=== PATIENT | female | born 1985 | race Asian ===

== ENCOUNTER 2019-01-15 16:25 | Inpatient (IN) | payer BC ==
[2019-01-15] MEDS ORDERED: LR 1,000 ML IV PRN (16:37)
[2019-01-15] MEDS ORDERED: MISOPROSTOL 200 MCG TAB PO PRN (16:37)
[2019-01-15] MEDS ORDERED: LIDOCAINE 1% 300 MG/30 ML SDV SC PRN (16:37)
[2019-01-15] MEDS ORDERED: IBUPROFEN 600 MG TAB PO PRN (16:37)
[2019-01-15] MEDS ORDERED: OXYTOCIN/RINGERS LACTATE 1,000 ML IV PRN (16:37)
[2019-01-15] MEDS ORDERED: TERBUTALINE SULFATE 1 MG/ML VIAL IV PRN (16:37)
[2019-01-15] MEDS ORDERED: OLIVE OIL 118 ML BTL MISC PRN (16:37)
[2019-01-15] MEDS ORDERED: AMMONIA AROMATIC 1 EACH AMP IH PRN (16:37)
[2019-01-15] MEDS ORDERED: EPSOM SALT 454 GM TP PRN (16:37)
[2019-01-15] MEDS ORDERED: LIDOCAINE 1% 300 MG/30 ML SDV ONE (17:32)
[2019-01-15] MEDS ORDERED: AMMONIA AROMATIC 1 EACH AMP IH ONE (17:33)
[2019-01-15] MEDS ORDERED: OXYTOCIN 10 UNIT/ML VIAL ONE (17:33)
[2019-01-15] MEDS ORDERED: MISOPROSTOL 200 MCG TAB ONE (17:33)
[2019-01-15] MEDS ORDERED: OLIVE OIL 118 ML BTL MISC ONE (17:33)
[2019-01-15] MEDS ORDERED: TERBUTALINE SULFATE 1 MG/ML VIAL ONE (17:33)
[2019-01-15 17:39] LABS: PLATELET COUNT 313 10^3/uL (150-400)
--- NOTE | 2019-01-15 17:51 | GHP ---
[f rep st] HISTORY AND PHYSICAL DATE OF ADMISSION: 01/15/2019 ADMITTING DIAGNOSIS: 1. Intrauterine at 40 weeks 4 days. 2. Nonreassuring testing. HISTORY OF PRESENT ILLNESS: Patient is a 33-year-old female from [facility], 1, para 0, at 40 weeks 4 days by LMP 04/06/2018, and consistent with ultrasound at 10 weeks. The patient presented to the office today, and saw my partner, Dr. Annmarie Link. Patient was complaining of lower abdominal pain, but does not stay very well hydrated. Good movement noted. Patient denies any vaginal bleeding or LOF. On exam, she was found to be 1 cm, 50%, -3 station and per it was difficult and very painful for his . NST was done that revealed 1 late deceleration, 2 accels, and multiple variable decelerations. Bedside ultrasound was done and revealed MVP of 3.8. It was discussed with the patient and her , without an layout inspector (they declined), that with non-reassuring testing and being past her due date, it was recommended she get delivered at this time. Patient was sent to Labor and Delivery for an induction of labor. At this time, she is uncomfortable with her contractions and breathing through them, pain 5/10. Denies any LOF of VB. Good FM noted. Patient has good care at [facility], and presented in her first trimester at 10 weeks. has been mostly uncomplicated. Patient has history of hypothyroidism and stable on levothyroxine 112 mcg. Patient has a history of asymptomatic gallstones, as well as asymptomatic asthma and has had no issues during the . She has not used an inhaler since she left [facility]. The patient was on progesterone in her first-trimester for low progesterone. The patient did have an abnormal Pap in the , and had a colposcopy that was benign. The patient developed anemia of , and is on iron supplement. She received Tdap and GBS culture is negative. PAST OB HISTORY: This is the patient's first . GYNECOLOGIC HISTORY: Age of menarche 12. Cycles every 28 to 29 days for 4 days. Patient denies history of abnormal Pap smears or any exposure to STDs. CURRENT MEDICATIONS: 1. Include vitamins. 2. Levothyroxine 112 mcg. 3. Iron supplement. ALLERGIES: No known drug allergies. PAST MEDICAL HISTORY: 1. Gallstones. 2. Asthma. PAST SURGICAL HISTORY: None. FAMILY HISTORY: Mother with hypertension. SOCIAL HISTORY: The patient is and lives with her . She is in [place]. Denies any alcohol, tobacco, or illicit drug use currently. REVIEW OF SYSTEMS: A 10-point review of systems is negative. Pertinent positives noted in HPI. LABS: First trimester H and H, 13.6 and 39.8, platelets 431. Blood type A positive, antibody negative. RPR nonreactive. Rubella immune. Hepatitis B surface antigen negative. HIV negative. Trio screen negative. Standard panel negative 06/19/2018. TSH in the late second trimester was elevated at 3.09, so Levo was increased to 112 mcg and then followup was 2.91. UA, urine culture, and UDS negative. Pap smear abnormal, LSIL. Gonorrhea, chlamydia cultures negative. Innatal screen negative. Single AFP negative. Third trimester H and H,11.2 and 33. 1 hour Glucola 117. GBS culture is negative. Varicella immune. PHYSICAL EXAMINATION: VITAL SIGNS: On admission, vital signs are stable. Patient is afebrile at 37.4, heart rate 84, respirations 28, and blood pressure 115/72. GENERAL: Patient is a well-nourished, well-developed female. Alert, and oriented x3. No apparent distress. SKIN: Warm, dry, and without rash. NEURO: Grossly intact. CARDIOVASCULAR: Regular rate and rhythm. LUNGS: Clear to auscultation bilaterally. ABDOMEN: Gravid, soft, nontender. PELVIC : In the office, she was 1 cm dilated, 50% effaced, -3 station. EXTREMITIES: Normal to inspection without calf tenderness or edema. Bedside ultrasound confirms cephalic presentation. heart tones: Category II strip with baseline 140s, positive accels, mild intermittent variable decels, and moderate variability; overall it is a reassuring strip. On toco, she is beti every 5 min. ASSESSMENT/PLAN: Patient is a 33-year-old 1, para 0, at 40 weeks 4 days , for induction of labor secondary to non-reassuring testing. 1. Admit to Labor and Delivery for induction to labor. 2. Unable to place Cervidil secondary to frequent contractions on toco. 3. Pt declined exam here on L&D, will augment with Pitocin. 4. GBS culture is negative. No antibiotics are needed. 5. heart tones are overall reassuring, will continue to monitor the strip closely. 6. Patient desires an epidural. /[id number]/MODL MTDD
[2019-01-15] MEDS ORDERED: LR 500 ML IV PRN (18:43)
[2019-01-15] MEDS ORDERED: OXYTOCIN/RINGERS LACTATE 500 ML IV SCH (19:00)
--- NOTE | 2019-01-16 06:13 | OBPROG ---
Labor Progress Note Assessment/Plan: Assessment: 33 y/o @ 40 5/7 weeks for IOL secondary to nonreassuring testing Plan: Pitocin currently at 10 mu/min Per RNs exam @0500, SVE: 2/60/-1, but not as posterior as previous exam FHTs - Cat II strip with intermittent, mild variable decels but overall reassuring Pt signed out to oncoming physician, Dr. Joyner who will take over care of the patient 01/16/19 06:08 Subjective/Intrapartum Course: 01/16/19 06:13 Pt is feeling her ctx's, but she able to sleep through them Objective: 01/15/19 17:00 Patient ABO/Rh A POSITIVE 01/15/19 17:00 - SVE Dilation (cm): 2 Effacement (%): 50 (60) Station: -1 - Contraction Pattern Assessment Current Contraction Pattern: Regular (q1-3 min) - FHR Assessment Billingsley FHR (bpm): 140 FHR Pattern Variability: Moderate FHR Category: 2 (mild, intermittent variable decels) - AP Antepartum Course: 01/16/19 06:15 Pt was on progesterone in first trimester secondary to low P4; hypothyroidism stable on Levo 112 mcg; anemia on iron; asymptomatic gallstones and asthma Oxytocin Orders Assessment - Pre-Induction/Augmentation Assessment Gestational Age: 40 week(s) and 4 day(s) ICD10 Worksheet Patient Problems: Problems Problem Status Onset Encounter for induction of labor Acute heart rate non-reassuring affecting management of mother Acute - ICD10 Problem Qualifiers (1) Encounter for induction of labor (2) heart rate non-reassuring affecting management of mother
--- NOTE | 2019-01-16 08:02 | OBPROG ---
Labor Progress Note Assessment/Plan: I assumed care from Dr. Cohen at 0700 Assessment:33 G1 at 40w5d, undergoing IOL for non-reassuring monitoring in office yesterday. Pitocin overnight but no progress. Cervix not ripened. Plan: Add cervical ripening to pitocin induction. Procedure: Transcervical Cook balloon catheter placed digitally with sterile gloves. 60ml saline in uterine balloon, 20ml saline in vaginal balloon. Pt uncomfortable but tolerated procedure well Marcia Joyner MD, FACOG 01/16/19 08:48 Subjective/Intrapartum Course: 01/16/19 06:13 Pt is feeling her ctx's, but she able to sleep through them 01/16/19 09:17 Pt is still only feeling mild contractions, no pain. NO LOF. No ssx preeclampsia. 01/16/19 09:17 Objective: 01/15/19 17:00 Patient ABO/Rh A POSITIVE 01/15/19 17:00 36.7 74 18 119/75 gen - pleasant, NAD abd - gravid, soft, NT ext - 1+ pitting edema BLE, 2+ DTRS, no clonus SVE 2/60/-1 - SVE Dilation (cm): 2 Effacement (%): 50 Station: -1 Membranes: Intact - Contraction Pattern Assessment Current Contraction Pattern: Regular (q1-3 min) - FHR Assessment Billingsley FHR (bpm): 130 FHR Pattern Variability: Moderate FHR Category: 1 - Procedures Non-surgical Procedures: Other (Specify) (transcervical balloon catheter placed 60ml u, 20 ml V) - AP Antepartum Course: 01/16/19 06:15 Pt was on progesterone in first trimester secondary to low P4; hypothyroidism stable on Levo 112 mcg; anemia on iron; asymptomatic gallstones and asthma Oxytocin Orders Assessment - Pre-Induction/Augmentation Assessment Gestational Age: 40 week(s) and 4 day(s) ICD10 Worksheet Patient Problems: Problems Problem Status Onset Encounter for induction of labor Acute heart rate non-reassuring affecting management of mother Acute
[2019-01-16] MEDS ORDERED: PHENYLEPHRINE HCL 100 MCG/ML SYR ONE (09:37)
[2019-01-16] MEDS ORDERED: BUPIVACAINE 0.25% 10 ML SDV ONE (09:37)
[2019-01-16] MEDS ORDERED: fentaNYL 2MCG/ML/BUP 0.1% RTU 100 ML BAG EP ONE (09:37)
[2019-01-16] MEDS ORDERED: METOCLOPRAMIDE 10 MG/2 ML VIAL IVP PRN (10:03)
[2019-01-16] MEDS ORDERED: ONDANSETRON 4 MG/2 ML VIAL IVP PRN (10:03)
[2019-01-16] MEDS ORDERED: PHENYLEPHRINE HCL 100 MCG/ML SYR IVP PRN (10:03)
[2019-01-16] MEDS ORDERED: NALOXONE HCL 0.4 MG/ML INJ IVP PRN (10:03)
--- NOTE | 2019-01-16 10:03 | POSTANESTH ---
Post Anesthetic Evaluation Cardiovascular Status: Normal, Stable Respiratory Status: Normal, Stable Level of Consciousness/Mental Status: Can Participate in Eval Pain Control: Adequate, Prn Tx Ordered Nausea/Vomiting Control: Adequate, Prn Tx Ordered Complications Possibly Related to Anesthesia: None Noted
--- NOTE | 2019-01-16 10:03 | PREANESOB ---
Obstetric Pre-Anesthesia Info - General Info Proposed Procedure: JAQUELIN : 1 Para: 0 EVAN: 01/11/19 Gestational Age: 40 week(s) and 4 day(s) - Info Status: Full Term Monitors: External FHR Pattern: Reassuring - Labor Status Cervical Dilation per last OB SVE: 2 Station per last OB SVE: -1 Pitocin: In Use Indications for Labor Analgesia: Pain Control Labor Epidural: Proposed Anesthesia Allergies/Adverse Reactions: Allergy/AdvReac Type Severity Reaction Status Date / Time No Known Allergies Allergy Unverified 01/15/19 17:43 Home Medications: Medication Instructions Recorded Iron 65 mg PO DAILY 01/15/19 Levothyroxine [Synthroid 112 mcg 112 mcg PO DAILY06 01/15/19 (*)] Visit Medications: Generic Name Dose Route Start Last Admin Trade Name Freq PRN Reason Stop Dose Admin Ammonia (Aromatic Spirit) 1 each 01/15/19 16:37 Ammonia Aromatic IH 01/25/19 16:36 ONCE PRN Fainting Lactated Ringer's 1,000 mls @ 0 mls/hr 01/15/19 16:37 01/15/19 20:56 Lr IV 01/16/19 16:36 1,000 mls PRN PRN Administration SEE PROTOCOL CONDITIONS Protocol Per Protocol Oxytocin/Lactated Ringer's 1,000 mls @ 0 mls/hr 01/15/19 16:37 Pitocin 20 Units/Lr (Premix) IV PRN PRN Post bleeding As Directed Lactated Ringer's 500 mls @ 500 mls/hr 01/15/19 18:43 Lr IV 01/16/19 18:43 PRN PRN Maternal Hypotension Oxytocin/Lactated Ringer's 500 mls @ 0 mls/hr 01/15/19 19:00 01/15/19 20:56 Pitocin 30 Units/Lr (Premix) IV 07/14/19 18:59 500 mls CONT SUSAN Administration Protocol Per Protocol Ibuprofen 600 mg 01/15/19 16:37 Motrin PO ONCE PRN post , pain Lidocaine HCl 300 mg 01/15/19 16:37 Lidocaine Hcl 1% SC 07/14/19 16:36 ONCE PRN episiotomy Magnesium Sulfate 454 gm 01/15/19 16:37 Epsom Salt TP 07/14/19 16:36 Q1H PRN perineal discomfort Misoprostol 800 - 1,000 mcg 01/15/19 16:37 Cytotec PO 07/14/19 16:36 ONCE PRN Vaginal Atony/Bleeding Barn[place] Oil 118 ml 01/15/19 16:37 Sweet Oil MISC 07/14/19 16:36 ONCE PRN perineal massage Terbutaline Sulfate 0.25 mg 01/15/19 16:37 Brethine IV 07/14/19 16:36 ONCE PRN Tachysystole Discontinued Medications Generic Name Dose Route Start Last Admin Trade Name Freq PRN Reason Stop Dose Admin Ammonia (Aromatic Spirit) Confirm 01/15/19 17:33 Ammonia Aromatic Administered 01/15/19 17:34 Dose 1 each IH .STK-MED ONE Bupivacaine HCl Confirm 01/16/19 09:37 Sensorcaine 0.25% Sdv Administered 01/16/19 09:38 Dose 10 ml .ROUTE .STK-MED ONE Fentanyl/Bupivacaine HCl Confirm 01/16/19 09:37 Fentanyl/Bupivacaine/Ns 2 Mcg/Ml 0.1% (Premix Administered 01/16/19 09:38 Dose 100 ml EP .STK-MED ONE Lidocaine HCl Confirm 01/15/19 17:32 Lidocaine Hcl 1% Administered 01/15/19 17:33 Dose 300 mg .ROUTE .STK-MED ONE Misoprostol Confirm 01/15/19 17:33 Cytotec Administered 01/15/19 17:34 Dose 1,000 mcg .ROUTE .STK-MED ONE Barn[place] Oil Confirm 01/15/19 17:33 Sweet Oil Administered 01/15/19 17:34 Dose 118 ml MISC .STK-MED ONE Oxytocin Confirm 01/15/19 17:33 Pitocin Administered 01/15/19 17:34 Dose 30 unit .ROUTE .STK-MED ONE Phenylephrine HCl Confirm 01/16/19 09:37 Neosynephrine Administered 01/16/19 09:38 Dose 1,000 mcg .ROUTE .STK-MED ONE Terbutaline Sulfate Confirm 01/15/19 17:33 Brethine Administered 01/15/19 17:34 Dose 1 mg .ROUTE .STK-MED ONE - Anesthesia History Response to Local Anesthetics: Not Applicable Anesthesia & Operative History: No Prior Problems Family Anesthesia History: Not Applicable - Vital Signs Height/Weight (Nursing): Height 157.48 cm Weight 86.636 kg - Focused Exam Neck exam: FROM Mallampati Score: Class 2 Mouth exam: normal dental/mouth exam Pulmonary: no respiratory distress Cardiovascular: regular rate and rhythym Labs: 01/15/19 17:00 Patient ABO/Rh A POSITIVE 01/15/19 17:00 - Plan Consent Signed and on Chart: Yes Patient/Guardian Understands and Agrees to Plan: Yes Urgent/Emergent Case: Mary gatica completed preop but documented later for safe timely pt care
[2019-01-16] MEDS ORDERED: fentaNYL 2MCG/ML/BUP 0.1% RTU 100 ML EP SCH (10:30)
[2019-01-16] MEDS ORDERED: LR 500 ML IV SCH (10:30)
--- NOTE | 2019-01-16 15:42 | OBPROG ---
Labor Progress Note Assessment/Plan: I assumed care from Dr. Cohen at 0700 Assessment:33 G1 at 40w5d, undergoing IOL for non-reassuring monitoring in office yesterday. Pitocin overnight but no progress. Cervix not ripened. Plan: Add cervical ripening to pitocin induction. Procedure: Transcervical Cook balloon catheter placed digitally with sterile gloves. 60ml saline in uterine balloon, 20ml saline in vaginal balloon. Pt uncomfortable but tolerated procedure well Marcia Joyner MD, FACOG 01/16/19 08:48 A/P: 33G1 at 40w5d, undergoing IOL. Slow progress. Epidural in place and effective. AROM - clear performed. Continue pitocin. Marcia Joyner MD, FACOG 01/16/19 15:39 Subjective/Intrapartum Course: 01/16/19 06:13 Pt is feeling her ctx's, but she able to sleep through them 01/16/19 09:17 Pt is still only feeling mild contractions, no pain. NO LOF. No ssx preeclampsia. 01/16/19 09:17 Pt comfortable since epidural placed around 1000. Balloon came out around 1430. 01/16/19 15:40 Objective: 01/15/19 17:00 Patient ABO/Rh A POSITIVE 01/15/19 17:00 36.6 77 113/62 gen - pleasant, NAD abd - gravid, soft when not beti SVE 4 / 50 / -3 with BBOW - AROM performed - clear fluid - SVE Dilation (cm): 4 Effacement (%): 50 Station: -3 Membranes: AROM Amniotic Fluid Color: Clear - Contraction Pattern Assessment Current Contraction Pattern: Regular (q1-3 min) - FHR Assessment Billingsley FHR (bpm): 150 FHR Pattern Variability: Moderate FHR Category: 1 - Procedures Non-surgical Procedures: Amniotomy (clear fluid), Other (Specify) ( transcervical balloon catheter placed 60ml u, 20 ml V) - AP Antepartum Course: 01/16/19 06:15 Pt was on progesterone in first trimester secondary to low P4; hypothyroidism stable on Levo 112 mcg; anemia on iron; asymptomatic gallstones and asthma Oxytocin Orders Assessment - Pre-Induction/Augmentation Assessment Gestational Age: 40 week(s) and 4 day(s) ICD10 Worksheet Patient Problems: Problems Problem Status Onset Encounter for induction of labor Acute heart rate non-reassuring affecting management of mother Acute
--- NOTE | 2019-01-16 20:58 | OBPROG ---
Labor Progress Note Assessment/Plan: I assumed care from Dr. Cohen at 0700 Assessment:33 G1 at 40w5d, undergoing IOL for non-reassuring monitoring in office yesterday. Pitocin overnight but no progress. Cervix not ripened. Plan: Add cervical ripening to pitocin induction. Procedure: Transcervical Cook balloon catheter placed digitally with sterile gloves. 60ml saline in uterine balloon, 20ml saline in vaginal balloon. Pt uncomfortable but tolerated procedure well Marcia Joyner MD, FACOG 01/16/19 08:48 A/P: 33G1 at 40w5d, undergoing IOL. Slow progress. Epidural in place and effective. AROM - clear performed. Continue pitocin. Marcia Joyner MD, FACOG 01/16/19 15:39 A/P: 33G1 at 40w5d, undergoing IOL. Thought to be complete and pushed for about 30 min, but upon further exam, a sliver of posterior cervix still present. Will allow time for cervix to finish dilating and then start pushing again. Marcia Joyner MD, FACOG 01/16/19 20:41 Subjective/Intrapartum Course: 01/16/19 06:13 Pt is feeling her ctx's, but she able to sleep through them 01/16/19 09:17 Pt is still only feeling mild contractions, no pain. NO LOF. No ssx preeclampsia. 01/16/19 09:17 Pt comfortable since epidural placed around 1000. Balloon came out around 1430. 01/16/19 15:40 Pt OK, pushing well for a few contractions. 01/16/19 20:58 Objective: 01/15/19 17:00 Patient ABO/Rh A POSITIVE 01/15/19 17:00 gen - pleasant, NAD SVE - sliver of posterior cervix present, currently direct OP on my exam - SVE Membranes: AROM Amniotic Fluid Color: Clear - Contraction Pattern Assessment Current Contraction Pattern: Regular (q1-3 min) - FHR Assessment Billingsley FHR (bpm): 150 (significant variables with some contractions - down to 90 for less than 10 seconds) FHR Pattern Variability: Moderate FHR Category: 2 - Procedures Non-surgical Procedures: Amniotomy (clear fluid), Other (Specify) ( transcervical balloon catheter placed 60ml u, 20 ml V) - AP Antepartum Course: 01/16/19 06:15 Pt was on progesterone in first trimester secondary to low P4; hypothyroidism stable on Levo 112 mcg; anemia on iron; asymptomatic gallstones and asthma Oxytocin Orders Assessment - Pre-Induction/Augmentation Assessment Gestational Age: 40 week(s) and 4 day(s) ICD10 Worksheet Patient Problems: Problems Problem Status Onset Encounter for induction of labor Acute heart rate non-reassuring affecting management of mother Acute
--- NOTE | 2019-01-16 23:31 | OBDEL ---
Info Type: Vaginal Presentation at Delivery: Vertex L&D Analgesia/Anesthesia Type: Epidural GBS+: No Intrapartum Medications: Generic Name Dose Route Start Last Admin Trade Name Freq PRN Reason Stop Dose Admin Oxytocin/Lactated Ringer's 500 mls @ 0 mls/hr 01/15/19 19:00 01/15/19 20:56 Pitocin 30 Units/Lr (Premix) IV 07/14/19 18:59 500 mls CONT SUSAN Administration Protocol Per Protocol Fentanyl/Bupivacaine HCl 100 mls @ 0 mls/hr 01/16/19 10:30 01/16/19 17:34 Fentanyl/Bupivacaine/Ns 2 Mcg/Ml 0.1% (Premix EP 01/26/19 10:29 100 mls CONT SUSAN Administration Protocol As Directed Discontinued Medications Generic Name Dose Route Start Last Admin Trade Name Freq PRN Reason Stop Dose Admin Lactated Ringer's 1,000 mls @ 0 mls/hr 01/15/19 16:37 01/15/19 20:56 Lr IV 01/16/19 16:36 1,000 mls PRN PRN Administration SEE PROTOCOL CONDITIONS Protocol Per Protocol - Care Provider Stamping Bench Die Maker/LODE MINER: Irma Briggs - Hospital Course Intrapartum: 01/16/19 06:13 Pt is feeling her ctx's, but she able to sleep through them 01/16/19 09:17 Pt is still only feeling mild contractions, no pain. NO LOF. No ssx preeclampsia. 01/16/19 09:17 Pt comfortable since epidural placed around 1000. Balloon came out around 1430. 01/16/19 15:40 Pt OK, pushing well for a few contractions. 01/16/19 20:58 Indications for Delivery: Postterm Unfavorable Cervix (nonreassuring monitoring in office, at 40w4d, delivered at 40w5d) Vaginal Delivery - Delivery Provider Delivery Physician/CNM: Marcia Joyner - Labor and Delivery Onset of Contractions Date: 01/16/19 Onset of Contractions Time: 15:30 Onset of Contractions Type: Induced Rupture of Membranes Date: 01/16/19 Rupture of Membranes Time: 15:28 Rupture of Membranes Type: Artificial Amniotic Fluid Color: Clear Dilation Complete Date: 01/16/19 Dilation Complete Time: 19:50 Placenta Delivery Date: 01/16/19 Placenta Delivery Time: 22:51 Total Hours of Labor: 7 Non-surgical Procedures: Amniotomy (clear fluid), Other (Specify) ( transcervical balloon catheter placed 60ml u, 20 ml V) Laceration: 3rd Degree Repair: 2-0, 3-0, 4-0, Vicryl Vaginal Sponge Count Correct: Yes Vaginal Needle Count Correct: Yes Vaginal Sweep Performed: Yes EBL: 300 Delivery Events: Nuchal Cord - Medications Labor Augmentation/Induction Methods Used: Pitocin, Larios Bulb Labor Augmentation/Induction Indication: Other (Specify) (nonreassuring surveillance in office 01/15/19) Assissted Delivery Assisted Delivery Type: Nayan Forceps (Maurice Luikart forceps) Station: +2 Assisted Delivery Comment: Pt became completely dilated at 1950, and pushed for about 30 min. A sliver of cervix posteriorly was noted so some passive descent was allowed. 2114 pushing resumed. Deep variable decelerations to 60s became recurrent with pushing. Moderate variability in between, but after about another hour of pushing, the heart rate baseline increased to 180s, so the decision was made to proceed with assisted delivery. Discussed options of forceps vs C/S delivery. Discussed B/R/A of forceps delivery, including permanent scars to the face and increased maternal lacerations. Verbal consent was obtained. Epidural anesthesia was in place and effective. The anesthesiologist was notified and attended the delivery - Dr. Mark Marley. Preparations were performed, sterile gown and gloves were put on. The pt's bladder was straight catheterized for about 20ml of dark blood tinged urine. Direct OA presentation confirmed, station at +2, caput present. FHR Cat 2 with deep variable decels to 60 and tachycardia to 180 for just over 10 minutes prior to forceps application. Luikhart-Maurice forceps applied and articulated after adjustment. Application double checked. No rotation was necessary. With one pull through one contraction, delivery of the vertex occurred. The forceps were gently removed as the perineum was supported. One nuchal cord was reduced on the perineum, and bulb suctioning was performed. No signs of dystocia. Gentle traction resulted in easy delivery of body to the maternal abdomen at 2243. 1 min of delay before the cord was cut and clamped. BEN Hu, was in attendance at the delivery. The placenta delivered spontaneously at 2251, and appeared complete and intact. A partial 3rd degree laceration was identified and repaired in layers in a standard fashion with 2.0 Vicryl for the rectal sphincter, and 3.0 for the 2nd degree portion and 4.0 for the skin of the perineum. A rectal exam confirmed no extension to the rectum, and no stitches in the rectum. Fundal massage was performed and clots were cleared from the vagina. Sponge, lap and needle counts were correct x 2. Pt and left stable in room with RN. Data EVAN: 01/11/19 (40w5d at delivery) Gestational Age: 40 week(s) and 6 day(s) Billingsley Delivery Date: 01/16/19 Delivery Time: 22:43 Sex of Infant: Male Score (1 Min): 8 Score (5 Min): 9 ICD10 Worksheet Patient Problems: Problems Problem Status Onset Encounter for induction of labor Acute heart rate non-reassuring affecting management of mother Acute Forceps delivery Acute Forceps delivery Acute - ICD10 Problem Qualifiers (1) Forceps delivery
--- NOTE | 2019-01-17 02:44 | OBPP ---
Progress Note Assessment/Plan: I assumed care from Dr. Cohen at 0700 Assessment:33 G1 at 40w5d, undergoing IOL for non-reassuring monitoring in office yesterday. Pitocin overnight but no progress. Cervix not ripened. Plan: Add cervical ripening to pitocin induction. Procedure: Transcervical Cook balloon catheter placed digitally with sterile gloves. 60ml saline in uterine balloon, 20ml saline in vaginal balloon. Pt uncomfortable but tolerated procedure well Marcia Joyner MD, FACOG 01/16/19 08:48 A/P: 33G1 at 40w5d, undergoing IOL. Slow progress. Epidural in place and effective. AROM - clear performed. Continue pitocin. Marcia Joyner MD, FACOG 01/16/19 15:39 A/P: 33G1 at 40w5d, undergoing IOL. Thought to be complete and pushed for about 30 min, but upon further exam, a sliver of posterior cervix still present. Will allow time for cervix to finish dilating and then start pushing again. Marcia Joyner MD, FACOG 01/16/19 20:41 33 G1 PPD#1 s/p forceps assisted vag delivery almost 4 hours ago - had some lightheadedness and fell when up to bathroom. VSS and appears to be fatigued. Uterus firm and minimal bleeding. Continue routine supportive cares. Will check hct in AM Marcia Joyner MD, FACOG 01/17/19 02:40 Subjective/ Course: 01/17/19 02:43 Pt fatigued, now resting quietly. Fell when up to bathroom. Objective: 01/15/19 17:00 Patient ABO/Rh A POSITIVE 01/15/19 17:00 36.8 98 100/58 gen - pleasant, NAD, resting in bed abd - fundus firm at u-1, NT peripad - min bleeding, min with fundal massage labia with some edema - as expected. Uterine Position/Fundal Height: Umbilicus -1 Uterine Tone: Firm
[2019-01-17] MEDS ORDERED: SIMETHICONE 80 MG TAB CHEW PO PRN (02:47)
[2019-01-17] MEDS ORDERED: HYDROCORTISONE 0.5% CREAM TP PRN (02:47)
[2019-01-17] MEDS: ACETAMINOPHEN 500 MG TAB PO SCH ×3 (06:07→21:33)
[2019-01-17] MEDS: IBUPROFEN 200 MG TAB PO SCH ×3 (07:42→21:33)
--- NOTE | 2019-01-17 19:59 | POSTANESTH ---
Post Anesthetic Evaluation Cardiovascular Status: Normal, Stable Respiratory Status: Normal, Stable Level of Consciousness/Mental Status: Can Participate in Eval, Alert and Oriented Pain Control: Adequate, Prn Tx Ordered Nausea/Vomiting Control: Adequate, Prn Tx Ordered Complications Possibly Related to Anesthesia: None Noted Notes: no adverse effects from JAQUELIN noted. patient doing well.
[2019-01-17] MEDS: DOCUSATE SODIUM 100 MG CAP PO PRN (21:33)
--- NOTE | 2019-01-17 23:22 | OBPP ---
Progress Note Assessment/Plan: Assessment: ppd# 1 s/p FAVD breast feeding and supplementing anemia Rh +/RI 3rd degree laceration - on stool softeners Plan: 01/17/19 23:21 01/17/19 23:23 01/17/19 23:24 Subjective/ Course: 01/17/19 02:43 Pt fatigued, now resting quietly. Fell when up to bathroom. 01/17/19 23:24 patient is doing well. pain is well controlled. normal lochia. denies headache and changes in vision. working on breast feeding. Objective: 01/17/19 11:51 Patient ABO/Rh A POSITIVE 01/15/19 17:00 Temp Pulse Resp BP Pulse Ox 37.2 C 104 H 18 115/68 97 01/17/19 20:00 01/17/19 20:00 01/17/19 20:00 01/17/19 20:00 01/17/19 20:00 Physical Exam - Physical Exam Neck: non-tender, full range of motion Respiratory: chest non-tender, lungs clear, normal breath sounds Cardiac/Chest: normal peripheral pulses, regular rate, rhythm Abdomen: normal bowel sounds, non-tender, other (fundus firm and non tender) Extremities: normal range of motion, non-tender, normal inspection, normal capillary refill Skin: normal color, warm/dry Neuro/Psych: no motor/sensory deficits, alert, normal mood/affect, oriented x 3
[2019-01-18] MEDS: ACETAMINOPHEN 500 MG TAB PO SCH ×3 (05:40→21:35)
[2019-01-18] MEDS: IBUPROFEN 200 MG TAB PO SCH ×3 (05:40→21:35)
[2019-01-18] MEDS: LEVOTHYROXINE 112 MCG TAB PO SCH (05:40)
[2019-01-18] MEDS: DOCUSATE SODIUM 100 MG CAP PO PRN ×2 (09:45→21:35)
[2019-01-18] MEDS: FERRO-SEQUELS 65 MG TAB.ER PO SCH ×2 (09:45→21:35)
[2019-01-18] MEDS ORDERED: oxyCODONE IR 5 MG TAB PO PRN (10:13)
--- NOTE | 2019-01-18 15:21 | OBPP ---
Progress Note Assessment/Plan: Assessment: PPD 2 s/p FAVD with partial third degree tear anemia fever --awaiting CBC results Plan: Don't rec d/c today - want to cont obs due to fever if WBCs elevated, rec covering with IV abx but unknown source of infection as uterus nontender and no dysuria. will check UA/cx. No breast engorgement and has not had many episodes of BF - no sign of breast infection 01/18/19 15:16 Subjective/ Course: 01/17/19 02:43 Pt fatigued, now resting quietly. Fell when up to bathroom. 01/17/19 23:24 patient is doing well. pain is well controlled. normal lochia. denies headache and changes in vision. working on breast feeding. 01/18/19 15:20 Pt has been having shakes and chills this afternoon. States it happened last noc but no documented fever. currently has 101 temp. Pt working on latching with . Pt denies pain from uterus on exam. denies burning with urinating. breasts appear normal when working with . bld has been normal lochia. I don't want d/c now as we need to cont observation due to fevers. vitals normal except mild tachycardia felt attributed to anemia 01/18/19 15:28 Objective: Patient ABO/Rh A POSITIVE 01/15/19 17:00 Temp Pulse Resp BP Pulse Ox 38.3 C H 116 H 16 114/78 97 01/18/19 13:52 01/18/19 13:52 01/18/19 13:52 01/18/19 13:52 01/18/19 08:32 Uterine Position/Fundal Height: Umbilicus -1 Uterine Tone: Firm Physical Exam - Physical Exam Abdomen: non-tender, soft, other (FF at umb -1) Extremities: non-tender, pedal edema (mild) Skin: normal color, diaphoresis ( currently with BF) Neuro/Psych: alert, normal mood/affect
[2019-01-18 18:39] LABS: PLATELET COUNT 250 10^3/uL (150-400)
[2019-01-19] MEDS: ACETAMINOPHEN 500 MG TAB PO SCH ×2 (05:36→14:30)
[2019-01-19] MEDS: IBUPROFEN 200 MG TAB PO SCH ×2 (05:37→14:31)
[2019-01-19] MEDS: LEVOTHYROXINE 112 MCG TAB PO SCH (05:37)
[2019-01-19] MEDS: FERRO-SEQUELS 65 MG TAB.ER PO SCH (10:47)
[2019-01-19 10:55] VITALS: BP 103/68
--- NOTE | 2019-01-19 11:04 | OBPP ---
Progress Note Assessment/Plan: Assessment: 1) s/p FAVD with partial third degree tear PPD #3 2) Anemia - pt is asymptomatic 3) Fever - unk etiology Plan: Pt afebrile almost 24 hr now Urine cx pending Pt is asymptomatic at this time; no further tachycardia No BM yet-will give Miralax Plan for d/c later today Instructions reviewed with pt No Rx given Cont Ibu, Tylenol, iron, PNV and colace Pelvic rest RTC in 3 weeks for a mood check and 6 weeks for a pp check 01/19/19 11:08 Subjective/ Course: 01/17/19 02:43 Pt fatigued, now resting quietly. Fell when up to bathroom. 01/17/19 23:24 patient is doing well. pain is well controlled. normal lochia. denies headache and changes in vision. working on breast feeding. 01/18/19 15:20 Pt has been having shakes and chills this afternoon. States it happened last noc but no documented fever. currently has 101 temp. Pt working on latching with . Pt denies pain from uterus on exam. denies burning with urinating. breasts appear normal when working with . bld has been normal lochia. I don't want d/c now as we need to cont observation due to fevers. vitals normal except mild tachycardia felt attributed to anemia. 01/19/19 11:04 Pt seen and examined. Doing well, but notes some discomfort secondary to no BM yet. Pain is well controlled with po meds. Pt is OOB without dizziness, rosibel regular diet, voiding without difficulty and passing flatus. Mod lochia. Denies any dysuria, ca tenderness, uterine tenderness. Notes breasts are hard-milk is coming in. BF is going well so far. Baby boy is to bet blood work checked for bili today. Objective: 01/18/19 13:30 Patient ABO/Rh A POSITIVE 01/15/19 17:00 Temp Pulse Resp BP Pulse Ox 37.1 C 80 16 103/68 98 01/19/19 10:54 01/19/19 10:54 01/19/19 10:54 01/19/19 10:54 01/18/19 20:00 Uterine Position/Fundal Height: Umbilicus -2 Uterine Tone: Firm Physical Exam - Physical Exam General Appearance: WD/WN, alert, no apparent distress Respiratory: lungs clear, normal breath sounds Cardiac/Chest: regular rate, rhythm Abdomen: normal bowel sounds, non-tender, soft, flatus (+) Extremities: non-tender, normal inspection, swelling Skin: warm/dry, pallor Neuro/Psych: alert, normal mood/affect, oriented x 3
--- NOTE | 2019-01-19 11:09 | OBGCSDC ---
General Delivery Information - General Info : 1 Para: 1 Abortions: 0 Type: Vaginal L&D Analgesia/Anesthesia Type: Epidural Admission Date: 01/15/19 Labs: Patient ABO/Rh A POSITIVE 01/15/19 17:00 Hct 27.0 % (38.0-47.0) L 01/18/19 13:30 Temp Pulse Resp BP Pulse Ox 01/19/19 10:54 37.1 C 80 16 103/68 01/18/19 20:00 36.8 C 98 20 108/76 98 01/18/19 16:36 37.4 C 01/18/19 13:52 38.3 C H 116 H 16 114/78 - Hospital Course Antepartum: 01/16/19 06:15 Pt was on progesterone in first trimester secondary to low P4; hypothyroidism stable on Levo 112 mcg; anemia on iron; asymptomatic gallstones and asthma Intrapartum: 01/16/19 06:13 Pt is feeling her ctx's, but she able to sleep through them 01/16/19 09:17 Pt is still only feeling mild contractions, no pain. NO LOF. No ssx preeclampsia. 01/16/19 09:17 Pt comfortable since epidural placed around 1000. Balloon came out around 1430. 01/16/19 15:40 Pt OK, pushing well for a few contractions. 01/16/19 20:58 : 01/17/19 02:43 Pt fatigued, now resting quietly. Fell when up to bathroom. 01/17/19 23:24 patient is doing well. pain is well controlled. normal lochia. denies headache and changes in vision. working on breast feeding. 01/18/19 15:20 Pt has been having shakes and chills this afternoon. States it happened last noc but no documented fever. currently has 101 temp. Pt working on latching with . Pt denies pain from uterus on exam. denies burning with urinating. breasts appear normal when working with . bld has been normal lochia. I don't want d/c now as we need to cont observation due to fevers. vitals normal except mild tachycardia felt attributed to anemia. 01/19/19 11:04 Pt seen and examined. Doing well, but notes some discomfort secondary to no BM yet. Pain is well controlled with po meds. Pt is OOB without dizziness, rosibel regular diet, voiding without difficulty and passing flatus. Mod lochia. Denies any dysuria, ca tenderness, uterine tenderness. Notes breasts are hard-milk is coming in. BF is going well so far. Baby boy is to bet blood work checked for bili today. Vaginal - Delivery Provider Delivery Physician/CNM: Marcia Joyner - Diagnosis Labor: Induced Rupture of Membranes Type: Artificial Amniotic Fluid Color: Clear Laceration: 3rd Degree Repair: 2-0, 3-0, 4-0, Vicryl Delivery Events: Nuchal Cord - Procedures Assisted Delivery Type: Nayan Forceps (Maurice Luikart forceps) Non-surgical Procedures: Amniotomy (clear fluid), Other (Specify) ( transcervical balloon catheter placed 60ml u, 20 ml V) - Delivery Non-surgical Procedures: Amniotomy (clear fluid), Other (Specify) ( transcervical balloon catheter placed 60ml u, 20 ml V) EBL: 300 [place] Data EVAN: 01/11/19 (40w5d at delivery) Gestational Age: 41 week(s) and 1 day(s) [place] Delivery Date: 01/16/19 Delivery Time: 22:43 Sex of : Male [place] Weight (gm): 3610 g Score (1 Min): 8 Score (5 Min): 9 Discharge Information - Discharge Information Condition: Good Instruction/Follow Up: Four Weeks (3 weeks for a mood check at PP), Six Weeks (for a routine check)
== END 2019-01-19 17:41 | disposition home or self-care (01) | DRG 768 ==
LOC: FLD 16:25 → FOB 01-17 06:23
PROVIDERS: ADMIT Obstetrics & Gynecology; ATTEND Obstetrics & Gynecology
PROC: 0DQR0ZZ Repair Anal Sphincter, Open Approach (ICD-10-PCS; principal; 2019-01-15)
PROC: 10907ZC Drainage of Amniotic Fluid, Therapeutic from Products of Conception, Via Natural or Artificial Opening (ICD-10-PCS; principal; 2019-01-15)
PROC: 0U7C7DZ Dilation of Cervix with Intraluminal Device, Via Natural or Artificial Opening (ICD-10-PCS; principal; 2019-01-15)
PROC: 3E033VJ Introduction of Other Hormone into Peripheral Vein, Percutaneous Approach (ICD-10-PCS; principal; 2019-01-15)
PROC: 10D07Z3 Extraction of Products of Conception, Low Forceps, Via Natural or Artificial Opening (ICD-10-PCS; principal; 2019-01-15)
DX: O48.0 Post-term pregnancy (principal); O70.20 Third degree perineal laceration during delivery, unspecified; O69.81X0 Labor and delivery complicated by cord around neck, without compression, not applicable or unspecified; O76 Abnormality in fetal heart rate and rhythm complicating labor and delivery; E03.9 Hypothyroidism, unspecified; O86.4 Pyrexia of unknown origin following delivery; O99.283 Endocrine, nutritional and metabolic diseases complicating pregnancy, third trimester; O99.019 Anemia complicating pregnancy, unspecified trimester; O99.619 Diseases of the digestive system complicating pregnancy, unspecified trimester; K80.20 Calculus of gallbladder without cholecystitis without obstruction; O99.519 Diseases of the respiratory system complicating pregnancy, unspecified trimester; J45.909 Unspecified asthma, uncomplicated; Z3A.40 40 weeks gestation of pregnancy; Z37.0 Single live birth
CPT/HCPCS: J2370; J2590; J3105